=== PATIENT | female | born 1990 | race Caucasian/White ===

== ENCOUNTER 2017-03-14 04:53 | Emergency (ER) | payer OTHER ==
--- NOTE | ~2017-03-14 | CT4 ---
[facility] A Service of [facility] RADIOLOGY TEXT RESULTS PATIENT: LEILA GARCIA LOCATION: [facility] : 88 UNIT #: [id number] AGE: [address]: ELBERT LINDSAY APRN SEX: F ORDER DR: [id number] [facility] [address] [place], [place] [address] [id number] MR#: [id number] Acc #: [id number] NAME: LEILA GARCIA. : 1990 SEX: F STUDY DATE/TIME: 03/14/2017 4:22 UNIT: [facility] ROOM: STUDY DESCRIPTION: CT Abd and Pelv Wo Cont Attending Physician: Elbert Lindsay Aprn Ordering Physician: Elbert Lindsay Aprn Primary Care Physician: Primary Care Physician No MEDICAL IMAGING REPORT This report is preliminary unless electronic signature is present EXAM CT abdomen and pelvis, noncontrast, kidney stone protocol, 03/14/2017 HISTORY 26-year-old female in the ED complaining of 1-day history of right flank pain. History of kidney stones. TECHNIQUE CT examination of the abdomen and pelvis without oral or IV contrast using kidney stone protocol. This CT examination was performed with one or more of the following radiation dose reduction techniques: automatic exposure control, adjustment of mA and/or kV according to patient size, and iterative reconstruction. FINDINGS ABDOMEN: 3 mm nonobstructing stone in the lower pole left kidney. No other renal or urinary tract calculi are identified. There is no evidence of urinary obstruction at this time. 2 probable small right renal cysts, unchanged since 12/15/2016. Contracted gallbladder. No bile duct dilatation. Liver, pancreas and spleen are normal in size and appearance without contrast. Small bowel and colon are normal in caliber and appearance, as imaged. The appendix is normal. PELVIS: Retroverted uterus and ovaries are normal in size and appearance. IUD within the endometrial cavity. Bladder and rectum are negative. Limited lung base images show no active disease. IMPRESSION 1. No acute abnormality within the abdomen or pelvis. 2. 3 mm nonobstructing stone in the lower left kidney. No additional renal or urinary tract calculi. No evidence of urinary obstruction [facility] A Service of [facility] & [facility] RADIOLOGY TEXT RESULTS PATIENT: LEILA GARCIA LOCATION: [facility] : 88 UNIT #: [id number] AGE: [address]: ELBERT LINDSAY APRN SEX: F ORDER DR: today. 3. 2 probable small right renal cysts, unchanged since the prior exam. 4. Normal appendix. Dictated by... Celestine Chamberlain M.D. THIS IS AN ELECTRONICALLY VERIFIED REPORT Celestine Chamberlain M.D. at 03/14/2017 10:18 PM NEDA/megha TD: 03/14/2017 05:56 JOB #: [id number] MEDICAL IMAGING REPORT Page 1 of 1 COPY
[2017-03-14 04:29] LABS: URINE APPEARANCE TURBID; URINE BILIRUBIN NEG (NEG); URINE BLOOD TRACE (NEG); URINE COLOR YELLOW; URINE GLUCOSE NEG (NEG); URINE KETONE NEG (NEG); URINE LEUKOCYTE ESTERASE TRACE (NEG); URINE NITRATE NEG (NEG); URINE PH 6.5 (5-8); URINE PROTEIN NEG (NEG); URINE SPECIFIC GRAVITY 1.023 (1.003-1.035)
[2017-03-14 04:30] LABS: CULTURE INDICATED? YES; URINE BACTERIA AUWI 1+ (NEGATIVE); URINE SQUAMOUS EPITHELIAL CELL FEW /[HPF]
[2017-03-14 04:50] LABS: BUN/CREATININE RATIO 16.66; CALCIUM SERUM 9.1 mg/dL (8.4-10.2); CREATININE SERUM 0.9 mg/dL (0.6-1.4); GLOM FILT RATE Estimated 87.7 mL/min (>60); POTASSIUM 3.7 mmol/L (3.5-5.1)
[~2017-03-14 04:53] MED LIST: BACTRIM DS TABL1 TA1 PO; CIPRO PO; EC-NAPROSYN500 MG PO; FLOMAX0.4 M1 PO; IBUPROFEN PO; IBUPROFEN800 MG PO; IRON1 TAB PO; MULTI-DAY1 TAB; NO MEDICATIONS; NORCO1 TAB 10/3 PO; PHENERGAN25 MG PO; ULTRAM PO; VICODIN 5/1 TAB 5/50 PO; ZOFRAN ODT4 MG PO; ZOFRAN ODT4 MG SL; ZOFRAN ODT4 MG/UDTAB PO
== END 2017-03-14 06:25 | disposition home or self-care (01) ==
LOC: CED 04:53
PROVIDERS: Nurse Practitioner Family
DX: N20.0 Calculus of kidney (principal); N39.0 Urinary tract infection, site not specified; F17.210 Nicotine dependence, cigarettes, uncomplicated
CPT/HCPCS: 36415; 74176; 80048; 81003; 84703; 87086; 96361; 96374; 96375; 99284; J1885; J2405